=== PATIENT | male | born 1965 | race Caucasian/White ===

== ENCOUNTER → 2017-07-15 | Outpatient (CLI) | payer BC ==
[2017-07-15 11:24] LABS: CHCM 33.6; HCT 43.5 % (39.0-53.0); HDW 2.45; HGB 14.4 gm/dL (13.0-17.5); MCH 29.7 pg (25.0-35.0); MCHC 33.1 g/dL (31.0-37.0); MCV 89.6 fL (80.0-100.0); Mean Platelet Volume 7.3; RBC 4.85 m/uL (4.30-5.90); RDW 13.5 % (11.5-15.5); WBC 6.7 k/uL (3.8-10.6)
[2017-07-15 12:23] LABS: ALT 64 U/L (21-72); AST 34 U/L (17-59); Alkaline Phosphatase 66 U/L (38-126); Anion Gap 9 mmol/L; Blood Urea Nitrogen 14 mg/dL (9-20); Calcium 9.4 mg/dL (8.4-10.2); Carbon Dioxide 26 mmol/L (22-30); Chloride 106 mmol/L (98-107); Cholesterol 211 mg/dL (<200); Glucose 108 mg/dL (74-99); HDL Cholesterol 51 mg/dL (40-60); Non-African American GFR(MDRD) >60 (>60 ml/min/1.73 sqM); Potassium 4.5 mmol/L (3.5-5.1); Sodium 141 mmol/L (137-145); Total Bilirubin 0.7 mg/dL (0.2-1.3); Total Protein 7.2 g/dL (6.3-8.2)
[2017-07-15 15:53] LABS: Prolactin 6.5 ng/mL (2.1-17.7)
[2017-07-15 16:47] LABS: Gliadin AB IgA, Deaminated NEGATIVE (NEGATIVE); Tis Transglutaminase IgA Unit <0.5 AI
[2017-07-15 16:48] LABS: Gliadin AB IgG, Deaminated NEGATIVE (NEGATIVE); Gliadin AB IgG, Unit <0.4 U/mL; Tis Transglutaminase IgG Unit <0.8 U/mL
== END | disposition home or self-care (01) ==
LOC: LABWHC1 10:51
PROVIDERS: ATTEND Internal Medicine
DX: N52.9 Male erectile dysfunction, unspecified (principal); I10 Essential (primary) hypertension; E78.00 Pure hypercholesterolemia, unspecified; R19.7 Diarrhea, unspecified
CPT/HCPCS: 36415; 80053; 80061; 83001; 83002; 83516; 84146; 84153; 84402; 84403; 84443; 85027

== ENCOUNTER 2017-10-06 20:13 | Emergency (ER) | payer BC ==
[2017-10-06 20:23] VITALS: BP 146/78; PULSE 83; RESP 18; TEMP 98.3
--- NOTE | 2017-10-06 21:04 | ED ---
Back Pain HPI - General Chief Complaint: Back Pain/Injury Stated Complaint: Back Pain Time Seen by Provider: 10/06/17 20:25 Source: patient, RN notes reviewed Limitations: no limitations - History of Present Illness Initial Comments: This is a 51-year-old male who presents to the emergency department with chief complaint of low back injury. Patient states that at 2 PM this afternoon he went to lift a trailer and twisted, injuring his low back. Patient states that he tried to do a few more things and was unable to due to the pain. He presented to his chiropractor who performed a minimal adjustment and stated that he felt something is wrong with patient's L4 vertebra. Patient presented to [facility] and was given oral steroids and a shot of Toradol. He was unable to get up from the wheelchair for a lumbar x-ray so did not obtain one there. He presents now to the emergency department for further evaluation. Patient denies saddle paresthesias or loss of bladder or bowel function. He denies numbness or tingling or radiation of pain down the legs. He denies any other injuries or trauma. - Related Data Previous Rx's Medication Instructions Recorded Cyclobenzaprine [Flexeril] 10 mg PO TID #12 tab 10/06/17 methylPREDNISolone Dose Pack 4 mg PO DIRECTED #21 package 10/06/17 [Medrol Dose Pack] Allergies Allergy/AdvReac Type Severity Reaction Status Date / Time No Known Allergies Allergy Verified 10/06/17 20:23 Review of Systems ROS Statement: Those systems with pertinent positive or pertinent negative responses have been documented in the HPI. ROS Other: All systems not noted in ROS Statement are negative. Past Medical History Past Medical History: Hypertension History of Any Multi-Drug Resistant Organisms: None Reported Past Surgical History: Tonsillectomy Past Psychological History: Depression Smoking Status: Never smoker Past Alcohol Use History: None Reported Past Drug Use History: None Reported General Exam - General Exam Comments Initial Comments: General: Awake and alert, well-developed; in no apparent distress. HEENT: Head atraumatic, normocephalic. Pupils are equal, round and reactive to light. Extraocular movements intact. Neck: Supple. Normal ROM. Cardiovascular: Regular rate and rhythm. No murmurs, rubs or gallops. Chest symmetrical. Respiratory: Lungs clear to auscultation bilaterally. No wheezes, rales or rhonchi. Normal respiratory effort with no use of accessory muscles. Musculoskeletal: Limited range of motion of spine due to pain. There is no bony point vertebral tenderness or SI joint tenderness. There is tenderness on palpation of left paraspinal muscles. Pedal pulses are 2+ equal and palpable bilaterally. Sensation is intact. Skin: [place], warm and dry without rashes or lesions. Neurological: Alert and oriented x3. CN II-XII grossly intact. Speech is fluent and answers are appropriate. No focal neuro deficits. Psychiatric: Normal mood and affect. No overt signs of depression or anxiety noted. Limitations: no limitations Course Vital Signs 10/06/17 20:19 Temperature 98.3 F Pulse Rate 83 Respiratory 18 Rate Blood Pressure 146/78 O2 Sat by Pulse 100 Oximetry Medical Decision Making - Medical Decision Making This is a 51-year-old male who presents to the emergency department with chief complaint low back pain. Patient states he sustained a low back injury while lifting a trailer and twisting. Today he was seen by his chiropractor and [facility]. He now presents to the emergency department for further evaluation. X -ray of the lumbar spine revealed no acute abnormalities. He denies saddle paresthesias or loss of bladder or bowel function. Denies numbness or tingling or radiation of pain down the legs. Patient was given a shot of Toradol and oral steroids while at [facility]. Patient likely suffering from a lumbar muscle strain. He is in no acute distress and will be discharged home. He'll be given prescriptions for a Medrol Dosepak and Flexeril. Patient requests pain medication now so that he can get home comfortably. I recommended low back stretching exercises as well as a heating pad. Patient is to follow-up with his primary care provider in the next couple of days. He is in agreement with plan and voices understanding. All questions were answered. - Radiology Data Radiology results: report reviewed X-ray lumbar spine findings: There are 5 lumbar type vertebral bodies identified. The lumbar spine show satisfactory alignment without evidence of acute fracture or dislocation. Vertebral body height are within normal limits. Scattered degenerative disc space narrowing. The overlying soft tissue appears unremarkable. Impression: No acute fracture or dislocation is seen in the lumbar spine. Disposition Clinical Impression: Strain of lumbar region Disposition: HOME SELF-CARE Condition: Good Instructions: Low Back Strain (ED), Acute Low Back Pain (ED), Lower Back Exercises (ED) Additional Instructions: Please take medications as prescribed. Please follow up with primary care provider within 1-2 days. Return to emergency department if symptoms should worsen or any concerns arise. Prescriptions: Cyclobenzaprine [Flexeril] 10 mg PO TID #12 tab methylPREDNISolone Dose Pack [Medrol Dose Pack] 4 mg PO DIRECTED #21 package Referrals: None,Stated [Primary Care Provider] - 1-2 days Time of Disposition: 21:24
--- NOTE | 2017-10-06 21:04 | XR ---
EXAMINATION TYPE: XR lumbar spine 2 or 3V DATE OF EXAM: 10/06/2017 CLINICAL HISTORY: pain TECHNIQUE: Three views of the lumbar spine are submitted. COMPARISON: None. FINDINGS: There are 5 lumbar type vertebral bodies identified. The lumbar spine shows satisfactory alignment w ithout evidence of acute fracture or dislocation. Vertebral body heights are within normal limits. Scattered degenerative disc space narrowing. The overlying soft tissue appears unremarkable. IMPRESSION: No acute fracture or dislocation is seen in the lumbar spine. ICD 10 NO FRACTURE, INITIAL EVALUATION
[2017-10-06] MEDS ORDERED: HYDROmorphone 4 MG/ML 1 ML SYRINGE IM STA (21:19)
== END 2017-10-06 21:30 | disposition home or self-care (01) ==
LOC: EC 20:13
DX: S39.012A Strain of muscle, fascia and tendon of lower back, initial encounter (principal); X50.1XXA Overexertion from prolonged static or awkward postures, initial encounter; Y93.89 Activity, other specified
CPT/HCPCS: 72100; 99283; 96372; J1170

== ENCOUNTER → 2018-04-15 | Outpatient (CLI) | payer BC ==
[2018-04-15 08:10] LABS: Anion Gap 8 mmol/L; Blood Urea Nitrogen 21 mg/dL (9-20); Calcium 9.4 mg/dL (8.4-10.2); Carbon Dioxide 28 mmol/L (22-30); Chloride 104 mmol/L (98-107); Glucose 107 mg/dL (74-99); Potassium 5.2 mmol/L (3.5-5.1); Sodium 140 mmol/L (137-145)
== END | disposition home or self-care (01) ==
LOC: LABWHC1 07:08
PROVIDERS: ATTEND Internal Medicine
DX: I10 Essential (primary) hypertension (principal)
CPT/HCPCS: 36415; 80048

== ENCOUNTER → 2022-01-28 | Outpatient (CLI) | payer OTHER ==
--- NOTE | 2022-01-28 11:01 | XR ---
EXAMINATION TYPE: XR shoulder complete LT DATE OF EXAM: 01/28/2022 COMPARISON: NONE HISTORY: Pain TECHNIQUE: Shoulder examined in 3 projections FINDINGS: The humeral head articulates with the glenoid. The acromio-clavicular junction is without hypertrophy. No acute fractures or dislocations are evident. A follow up study can be performed 7-10 days from acute trauma for continued pain. MRI can be perform ed for evaluation of soft tissues. IMPRESSION: 1. No acute osseous abnormality left shoulder.
== END | disposition home or self-care (01) ==
LOC: RADXRMAIN 10:23
PROVIDERS: ATTEND Emergency Medicine
DX: M25.512 Pain in left shoulder (principal)

== ENCOUNTER → 2022-02-04 | Outpatient (CLI) | payer OTHER ==
--- NOTE | 2022-02-05 06:30 | MR ---
EXAMINATION TYPE: MR shoulder LT wo con DATE OF EXAM: 02/04/2022 COMPARISON: None HISTORY: Left shoulder pain and limited range of motion due to work related injury 2 weeks ago. Multiplanar multiecho imaging of the left shoulder with no contrast. The biceps tendon is intact. Subscapularis tendon is intact. There is large area of mixed signal in t he subchondral humeral head that measures 2 cm. This could be a bone infarct. The glenoid casey appea r intact. There is fluid signal around the infraspinatus tendon. There is patchy increased signal in the infras pinatus muscle bundle. There is a large rotator cuff tear with some retraction of the supraspinatus tendon. There is some ma lalignment of the AC joint consistent with an old ligamentous tear. No fracture line seen. IMPRESSION: Patchy mixed signal in the humeral head that could be multifocal bone infarct. No fracture line seen. There is tear of the infraspinatus tendon with increased signal in the muscle and consistent with malik sitis. There is a large full-thickness rotator cuff tear of the supraspinatus tendon. Mild subacromia l joint space narrowing.
== END | disposition home or self-care (01) ==
LOC: RADMRIMAIN 18:29
PROVIDERS: ATTEND Emergency Medicine
DX: S40.012A Contusion of left shoulder, initial encounter (principal)

== ENCOUNTER → 2022-08-18 | Outpatient (CLI) | payer BC ==
[2022-08-18 22:55] LABS: HCT 41.1 % (39.6-50.0); HGB 13.5 g/dL (13.0-17.0); MCH 30.4 pg (27.0-32.0); MCHC 32.8 g/dL (32.0-37.0); MCV 92.6 fL (80.0-97.0); Mean Platelet Volume 9.7 fL (9.5-12.2); NRBC Per 100 WBC 0 /100 WBCS (0.0-0.0); Platelet Count 233 X 10*3/uL (140-440); RBC 4.44 X 10*6/uL (4.40-5.60); RDW 11.9 % (11.5-14.5); WBC 7.94 X 10*3/uL (4.50-10.00)
[2022-08-18 23:34] LABS: African American GFR (CKD) 71.2 (60.0-200.0); Anion Gap 12.8 mmol/L (10.00-18.00); Carbon Dioxide 23.2 mmol/L (20.0-27.5); Non-African American GFR(CKD) 61.4 (60.0-200.0); Potassium 4.8 mmol/L (3.5-5.5)
== END | disposition home or self-care (01) ==
LOC: LABPAT 16:11
PROVIDERS: ATTEND Internal Medicine Interventional Cardiology
DX: Z01.812 Encounter for preprocedural laboratory examination (principal); I25.10 Atherosclerotic heart disease of native coronary artery without angina pectoris
CPT/HCPCS: 80051; 82565; 84520; 85027

== ENCOUNTER 2022-08-20 18:19 | Emergency (ER) | payer BC ==
[2022-08-20 18:41] VITALS: TEMP 98
[2022-08-20 19:00] LABS: Basophils # (A) 0.1 k/uL (0-0.2); Basophils % (A) 1 %; Eosinophils # (A) 0.3 k/uL (0-0.7); Eosinophils % (A) 4 %; HCT 40.5 % (39.0-53.0); HGB 14.3 gm/dL (13.0-17.5); Lymphocytes # (A) 2.7 k/uL (1.0-4.8); Lymphocytes % (A) 34 %; MCH 31.7 pg (25.0-35.0); MCHC 35.2 g/dL (31.0-37.0); MCV 89.9 fL (80.0-100.0); Mean Platelet Volume 7.7; Monocytes # (A) 0.5 k/uL (0-1.0); Monocytes % (A) 7 %; Neutrophils # (A) 4.2 k/uL (1.3-7.7); Neutrophils % (A) 53 %; Platelet Count 234 k/uL (150-450); RBC 4.51 m/uL (4.30-5.90); RDW 11.8 % (11.5-15.5); WBC 7.9 k/uL (3.8-10.6)
[2022-08-20 19:09] LABS: ALT 62 U/L (4-49); AST 53 U/L (17-59); African American GFR (CKD) >90 (>60 ml/min/1.73 sqM); Albumin 4.7 g/dL (3.5-5.0); Alkaline Phosphatase 80 U/L (38-126); Anion Gap 11 mmol/L; Blood Urea Nitrogen 15 mg/dL (9-20); Calcium 8.9 mg/dL (8.4-10.2); Carbon Dioxide 23 mmol/L (22-30); Chloride 104 mmol/L (98-107); Glucose 112 mg/dL (74-99); INR 0.9 (<1.2); Magnesium 1.9 mg/dL (1.6-2.3); Non-African American GFR(CKD) >90 (>60 ml/min/1.73 sqM); Partial Thromboplastin Time 24.5 sec (22.0-30.0); Potassium 3.8 mmol/L (3.5-5.1); Prothrombin Time 10.1 sec (9.0-12.0); Sodium 138 mmol/L (137-145); Total Bilirubin 0.8 mg/dL (0.2-1.3); Total Protein 7.7 g/dL (6.3-8.2)
--- NOTE | 2022-08-20 19:58 | XR ---
EXAMINATION TYPE: XR chest 2V DATE OF EXAM: 08/20/2022 COMPARISON: None INDICATION: Chest pain difficulty in breathing TECHNIQUE: Frontal and lateral views of the chest are obtained. FINDINGS: The heart size is normal. The pulmonary vasculature is normal. The lungs are clear. IMPRESSION: 1. No acute pulmonary process.
--- NOTE | 2022-08-20 21:37 | ED ---
Chest Pain HPI - General Chief Complaint: Chest Pain Stated Complaint: Chest Pain,HARISH Source: patient, RN notes reviewed, old records reviewed Mode of arrival: ambulatory Limitations: no limitations - History of Present Illness Initial Comments: This 56-year-old male to the emergency department for evaluation patient resents today for evaluation regards to chest pain occasional chest pain with shortness of breath especially on exertion swelling. History of high blood pressure high cholesterol and a daily aspirin. Patient recently had a failed stress test and is scheduled for cardiac catheterization tomorrow. Otherwise patient has no complaints. Patient is here with she does admit to maybe some anxiety MD Complaint: chest pain -: unknown Onset: during exertion, awoke with symptoms Pain Location: substernal, left chest Pain Radiation: back Severity: mild Severity scale (1-10): 3 Quality: tightness Consistency: intermittent, now resolved Improves With: nothing Worsens With: exertion Context: other (0) Anginal Symptoms: diaphoresis, dyspnea Other Symptoms: other (0) - Related Data Home Medications Medication Instructions Recorded Confirmed Aspirin EC [Ecotrin Low Dose] 81 mg PO DAILY 08/18/22 08/18/22 Atorvastatin [Lipitor] 40 mg PO DAILY 08/18/22 08/18/22 Ezetimibe [Zetia] 10 mg PO DAILY 08/18/22 08/18/22 Metoprolol Tartrate [Lopressor] 25 mg PO BID 08/18/22 08/18/22 Multivit-Min/Folic/Vit K/Lycop 1 each PO DAILY 08/18/22 08/18/22 [Men's Multivitamin Tablet] Sertraline [Zoloft] 50 mg PO HS 08/18/22 08/18/22 lisinopriL [Zestril] 10 mg PO DAILY 08/18/22 08/18/22 Allergies Allergy/AdvReac Type Severity Reaction Status Date / Time No Known Allergies Allergy Verified 08/18/22 14:29 Review of Systems ROS Statement: Those systems with pertinent positive or pertinent negative responses have been documented in the HPI. ROS Other: All systems not noted in ROS Statement are negative. EKG Findings - EKG Comments: EKG Findings:: EKG as interpreted by me is sinus rhythm 74 NE 161 QRS 89 QTC 431 Past Medical History Past Medical History: Hyperlipidemia, Hypertension Additional Past Medical History / Comment(s): RECENT ABN STRESS TEST History of Any Multi-Drug Resistant Organisms: None Reported Past Surgical History: Orthopedic Surgery, Tonsillectomy Additional Past Surgical History / Comment(s): LT ROTATOR CUFF REPAIR. COLONOSCOPY Past Anesthesia/Blood Transfusion Reactions: No Reported Reaction Past Psychological History: Depression Smoking Status: Former smoker - Past Family History Father Family Medical History: Cancer General Exam Limitations: no limitations General appearance: alert, in no apparent distress Head exam: Present: atraumatic, normocephalic, normal inspection Eye exam: Present: normal appearance, PERRL, EOMI. Absent: scleral icterus, conjunctival injection, periorbital swelling ENT exam: Present: normal exam, mucous membranes moist Neck exam: Present: normal inspection. Absent: tenderness, meningismus, lymphadenopathy Respiratory exam: Present: normal lung sounds bilaterally. Absent: respiratory distress, wheezes, rales, rhonchi, stridor Cardiovascular Exam: Present: regular rate, normal rhythm, normal heart sounds. Absent: systolic murmur, diastolic murmur, rubs, gallop, clicks GI/Abdominal exam: Present: soft, normal bowel sounds. Absent: distended, tenderness, guarding, rebound, rigid Extremities exam: Present: normal inspection, full ROM, normal capillary refill. Absent: tenderness, pedal edema, joint swelling, calf tenderness Back exam: Present: normal inspection Neurological exam: Present: alert, oriented X3, CN II-XII intact Psychiatric exam: Present: normal affect, normal mood Skin exam: Present: warm, dry, intact, normal color. Absent: rash Course Vital Signs 08/20/22 18:38 Temperature 98 F Pulse Rate 79 Respiratory 18 Rate Blood Pressure 165/75 O2 Sat by Pulse 99 Oximetry - Reevaluation(s) Reevaluation #1: 08/20/22 21:26 Medical records reviewed Reevaluation #2: Patient reevaluated, symptoms improved Reevaluation #3: 08/20/22 21:24 Differential Chest Pain: Stable Angina, Unstable Angina, STEMI, NSTEMI Aortic Dissection, Pneumothorax, Musculoskeletal, Esophageal Spasm GERD, Cholecystitis, Pancreatitis, Zoster, this is not meant to be an all-inclusive list. Reevaluation #4: 08/20/22 21:25 Was pt. sent in by a medical professional or institution? @ -None Did you speak to anyone other than the patient for history? @ -EMS Did you review nursing and triage notes? @ -Gastrointestinal nursing triage thoroughly reviewed Were old charts reviewed? @ -Old EKG and prior stress tests are reviewed Differential Diagnosis? @ -See previous EKG interpreted by me (3pts min.)? @ -See previous X-rays interpreted by me (1pt min.)? @ -See previous CT interpreted by me (1pt min.)? @ -[none] U/S interpreted by me (1pt. min.)? @ -[none] What testing was considered but not performed? (CT, X-rays, U/S, labs)? Why? @No CT secondary to chest pain cardiac in nature, rule out ACS What meds were considered but not given? Why? @ -Patient is on daily aspirin Did you discuss the management of the patient with other professionals? @ -None Did you reconcile home meds? @ -[none] Was smoking cessation discussed for >3mins.? @ -[none] Was critical care preformed (if so, how long)? @ -[none] Were there social determinants of health that impacted care today? How? (Homelessness, low income, unemployed, alcoholism, drug addiction, transportation, low edu. Level, literacy, decrease access to med. care, fpc, rehab)? @ -None Was there de-escalation of care discussed even if they declined? (Discuss DNR or withdrawal of care, Hospice)? @ -None What co-morbidities impacted this encounter? (DM, HTN, Smoking, COPD, CAD, Cancer, CVA, Hep., AIDS, mental health diagnosis, sleep apnea, morbid obesity)? @ -High blood pressure, high cholesterol, feel prior stress test Was patient admitted / discharged? @ -Discharged Undiagnosed new problem with uncertain prognosis? @ -[none] Drug Therapy requiring intensive monitoring for toxicity (Heparin, Nitro, Insulin, Cardizem)? @ -[none] Were any procedures done? @ -[none] Diagnosis/symptom? @ - Acute, or Chronic, or Acute on Chronic? @ -Acute on chronic Uncomplicated (without systemic symptoms) or Complicated (systemic symptoms)? @ -[default] Side effects of treatment? @ -[none] Exacerbation, Progression, or Severe Exacerbation] @ -[no] Poses a threat to life or bodily function? @ -Possible patient does have outpatient stress test and agrees to keep that appointment with discharged 08/20/22 21:32 Reevaluation #5: 08/20/22 21:26 Reevaluation patient does have appointment with Dr. Ramírez tomorrow for cardiac catheterization, will keep that appointment with normal EKG today and normal troponin Chest Pain [facility] - Differential Diagnosis AMI, Pericarditis, Pericardial Tamponade, Pneumonia, Pleurisy-Other, Valvular Heart Disease, GERD, Esophageal Spasm, Biliary Colic, Pancreatitis, Thoracic Aortic Dissection, Pneumomediastinum, Pneumothorax/Tension, Chest Wall Syndrome, Mediastinitis, Hyperventilation Syndrome, Panic Disorder/Anxiety - MDM 56 male presents today as a chest pain evaluation. Patient feels episodic chest pain which she hasn't doing with for some time with some occasional shortness of breath sweating. Patient doesn't report for cardiac catheterization tomorrow troponins negative he is on aspirin, EKG also currently negative patient will keep appointment can be discharged home as he currently asymptomatic Disposition Clinical Impression: Chest pain Disposition: HOME SELF-CARE Condition: Undetermined Instructions (If sedation given, give patient instructions): Chest Pain (ED) Is patient prescribed a controlled substance at d/c from ED?: No Referrals: Franklin Bird MD [Primary Care Provider] - 1-2 days Saul Gibbons MD [STAFF PHYSICIAN] - 1-2 days Time of Disposition: 21:40
[2022-08-21 00:38] VITALS: BP 137/78; PULSE 71; RESP 15
== END 2022-08-21 00:38 | disposition home or self-care (01) ==
LOC: EC 18:19
DX: R07.9 Chest pain, unspecified (principal); I10 Essential (primary) hypertension; E78.5 Hyperlipidemia, unspecified; F32.A Depression, unspecified; Z87.891 Personal history of nicotine dependence; Z79.82 Long term (current) use of aspirin; Z79.01 Long term (current) use of anticoagulants; Z79.899 Other long term (current) drug therapy
CPT/HCPCS: 36415; 71046; 80053; 83735; 84484; 85025; 85610; 85730; 93005; 99285

== ENCOUNTER 2022-08-21 08:07 | Day surgery (SDC) | payer BC, OTHER ==
[2022-08-18 14:41] VITALS: BMI 39.0
[~2022-08-21 08:07] MED LIST: ALPRAZolam 0.25 MG TAB PO PRN; ALPRAZolam 0.5 MG TAB PO PRN; ASPIRIN 325 MG TAB PO ONE; NITROGLYCERIN SL TABS 0.4 MG TAB SUBLINGUAL PRN; SODIUM CHLORIDE 0.9% 1,000 ML in EMPTY BAG 1 BAG IV SCH
[2022-08-21] MEDS ORDERED: SODIUM CHLORIDE 0.9% 1,000 ML IV ONE (08:22)
[2022-08-21] MEDS ORDERED: ASPIRIN 81 MG ONE (08:32)
[2022-08-21 09:01] VITALS: RESP 16; TEMP 98.4
[2022-08-21] MEDS ORDERED: VERAPAMIL 2.5 MG/ML 2 ML AMP ONE (09:32)
[2022-08-21] MEDS ORDERED: HEPARIN SODIUM 1,000 UN/ML (10ML VL) ONE (09:32)
[2022-08-21] MEDS: MIDAZOLAM 2 MG/2 ML VIAL IV ONE ×2 (09:49→10:03)
[2022-08-21] MEDS ORDERED: fentaNYL (PF) 50 MCG/ML 2 ML AMP ONE (09:49)
[2022-08-21] MEDS ORDERED: fentaNYL (PF) 50 MCG/ML 2 ML AMP IV ONE (09:50)
[2022-08-21] MEDS ORDERED: LIDOCAINE 1% INJ 10MG/ML (5 ML VIAL-PF) SQ ONE (10:03)
[2022-08-21] MEDS ORDERED: VERAPAMIL SYRINGE (5 MG/10 ML) INTRAARTER ONE (10:04)
[2022-08-21] MEDS ORDERED: HEPARIN SODIUM 1,000 UN/ML (10ML VL) IV ONE (10:08)
[2022-08-21] MEDS ORDERED: IOPAMIDOL-370 125ML BTL INJ ONE (10:13)
[2022-08-21] MEDS ORDERED: RX INFO: IV CONTRAST WAS GIVEN 1 EACH MISC MISCELLANE PRN (10:21)
--- NOTE | 2022-08-21 10:24 | P.PCN ---
Date of Procedure: 08/21/22 Operative Findings: CARDIAC CATHETERIZATION PERFORMING PHYSICIAN: Saul Gibbons MD, RPVI PROCEDURE PERFORMED: 1. Selective right and left coronary angiogram INDICATION: This is a 56-year-old gentleman with CAD and hypertension and dyslipidemia who was going to undergo hip surgery. He underwent myocardial perfusion imaging stress test came in to be abnormal showing anterior ischemia. In the light of that he was brought to undergo a heart catheterization COMPLICATION: None APPROACH: Right radial artery LEVEL OF SEDATION: Moderate with a sedation length of 11 minutes PROCEDURE DESCRIPTION: After obtaining an informed consent, the patient was brought to cardiac catheterization laboratory technician. Local anesthesia was performed using lidocaine subcutaneously. The right radial artery was cannulated using Seldinger technique, the guidewire passed easily, following that we advanced a 5-Yoruba sheath dilator assembly, the wire and dilator were removed and sheath was flushed. Following that, 2 mg of verapamil along with 5000 unit heparin were given. Selective right and left coronary angiogram using a 6-Yoruba JR4 and JL 3.5 catheters. The procedure was completed there was no complication. SELECTIVE CORONARY ANGIOGRAM: The right coronary artery: Large caliber vessel and dominant vessel. The RCA appeared to be angiographically normal. Distally bifurcates into PDA and PLV branches both appeared to be angiographically normal Left main: Is angiographically normal. It is a long left main The left circumflex: Large caliber vessel. Non-dominant vessel. The LCx is angiographically normal. Gives rises into OM1 and OM to both appeared to be angiographically normal The left anterior descending artery: Large caliber vessel. The LAD is angiographically normal. Gives rises into the first and second diagonal branches both appeared to be angiographically normal. CONCLUSION: 1. Normal coronary angiogram POSTPROCEDURE MANAGEMENT: Medical treatment and follow-up with the patient
[2022-08-21] MEDS ORDERED: SODIUM CHLORIDE 0.9% 1,000 ML IV SCH (10:30)
[2022-08-21 13:49] VITALS: BP 107/56; PULSE 67
== END 2022-08-21 14:18 | disposition home or self-care (01) ==
LOC: CATHCVL 08:07
PROVIDERS: ATTEND Internal Medicine Interventional Cardiology
DX: I25.10 Atherosclerotic heart disease of native coronary artery without angina pectoris (principal); I10 Essential (primary) hypertension; E78.5 Hyperlipidemia, unspecified; I99.8 Other disorder of circulatory system; Z79.82 Long term (current) use of aspirin; Z79.811 Long term (current) use of aromatase inhibitors; Z79.899 Other long term (current) drug therapy; Z79.01 Long term (current) use of anticoagulants; Z79.02 Long term (current) use of antithrombotics/antiplatelets; Z79.83 Long term (current) use of bisphosphonates; E66.01 Morbid (severe) obesity due to excess calories; Z68.41 Body mass index [BMI] 40.0-44.9, adult
CPT/HCPCS: 93454; C1769; C1894; J2250; J2001; J3010; J1644; Q9967

== ENCOUNTER → 2022-09-10 | Outpatient (CLI) | payer BC ==
[2022-09-10 17:22] LABS: INR 0.9 (<1.2); Partial Thromboplastin Time 23.4 sec (22.0-30.0); Prothrombin Time 10.1 sec (9.0-12.0)
[2022-09-10 22:15] LABS: MCH 31.3 pg (27.0-32.0); MCHC 33.3 g/dL (32.0-37.0); MCV 93.8 fL (80.0-97.0); Mean Platelet Volume 10.3 fL (9.5-12.2); NRBC Per 100 WBC 0 /100 WBCS (0.0-0.0); Platelet Count 262 X 10*3/uL (140-440); RBC 4.48 X 10*6/uL (4.40-5.60); RDW 12.2 % (11.5-14.5); WBC 9.17 X 10*3/uL (4.50-10.00)
[2022-09-10 22:59] LABS: African American GFR (CKD) 87.1 (60.0-200.0); Albumin 4.8 g/dL (3.8-4.9); Anion Gap 11.7 mmol/L (10.00-18.00); BUN/Creat Ratio 19.09 Ratio (12.00-20.00); Carbon Dioxide 25.3 mmol/L (20.0-27.5); Globulin 2.4 g/dL (1.6-3.3); Non-African American GFR(CKD) 75.2 (60.0-200.0); Potassium 4.5 mmol/L (3.5-5.5); Total Bilirubin 0.5 mg/dL (0.30-1.20); Total Protein 7.2 g/dL (6.2-8.2)
[2022-09-10 23:28] LABS: Appearance,Urine Clear (Clear); Bilirubin,Urine Negative (Negative); Blood,Urine Negative (Negative); Color,Urine Yellow (Yellow); Ketones,Urine Negative (Negative); Nitrite,Urine Negative (Negative); PH, Urine 5.5 (5.0-8.0); Urobilinogen,Urine 0.2 (0.2,1.0)
== END | disposition home or self-care (01) ==
LOC: LABPAT 16:13
PROVIDERS: ATTEND Orthopaedic Surgery
DX: Z01.812 Encounter for preprocedural laboratory examination (principal); M16.12 Unilateral primary osteoarthritis, left hip
CPT/HCPCS: 80053; 81003; 85027; 85610; 85730; 87070; 93005

== ENCOUNTER 2022-09-16 12:01 | Day surgery (SDC) | payer BC, OTHER ==
[2022-09-11 12:18] VITALS: BMI 39.0
[~2022-09-16 12:01] MED LIST changes: +ACETAMINOPHEN TAB 500 MG TAB PO PRN; -ALPRAZolam 0.25 MG TAB PO PRN; -ALPRAZolam 0.5 MG TAB PO PRN; -ASPIRIN 325 MG TAB PO ONE; +DEXAMETHASONE SOD PHOSPHATE 10 MG/ML 1 ML VIAL IV PRN; +DEXAMETHASONE SOD PHOSPHATE 4 MG/ML 1 ML VIAL IV ONE; +DOCUSATE 100 MG CAP PO PRN; +FAMOTIDINE 20 MG/2 ML VIAL IVP PRN; +HYDROmorphone 0.5 MG/0.5 ML SYRINGE IVP PRN; +KETOROLAC 15 MG/ML 1 ML VIAL IVP PRN; +LIDOCAINE 1% (10MG/ML) FOR IV START INTRADERMA PRN; -NITROGLYCERIN SL TABS 0.4 MG TAB SUBLINGUAL PRN; +ONDANSETRON 4 MG/2 ML VIAL IVP ONE; +ONDANSETRON 4 MG/2 ML VIAL IVP PRN; -SODIUM CHLORIDE 0.9% 1,000 ML in EMPTY BAG 1 BAG IV SCH; +TRANEXAMIC ACID IN NACL,ISO-OS 1,000 MG in SALINE 1 100ML.BAG IVPB PRN; +ceFAZolin 3 GM in SODIUM CHLORIDE 0.9% 100 ML IVPB PRN; +oxyCODONE ER 10 MG TAB.ER.12H PO PRN
[2022-09-16] MEDS ORDERED: LACTATED RINGERS 1,000 ML IV ONE ×2 (12:20→14:44)
[2022-09-16] MEDS ORDERED: MIDAZOLAM 2 MG/2 ML VIAL IVP ONE (13:01)
[2022-09-16] MEDS ORDERED: fentaNYL (PF) 50 MCG/1 ML VIAL IVP ONE ×2 (13:01)
[2022-09-16] MEDS ORDERED: ePHEDrine 50 MG/ML 1 ML VIAL ONE (13:09)
[2022-09-16] MEDS ORDERED: LIDOCAINE 2% INJ 20 MG/ML (2 ML VIAL) ONE (13:09)
[2022-09-16] MEDS ORDERED: ROCURONIUM 10 MG/ML (5 ML VIAL) IV ONE (13:09)
[2022-09-16] MEDS ORDERED: fentaNYL (PF) 50 MCG/ML 2 ML AMP ONE (13:09)
[2022-09-16] MEDS ORDERED: NEOSTIGMINE 1 MG/ML 10 ML VIAL ONE (13:09)
[2022-09-16] MEDS ORDERED: GLYCOPYRROLATE 0.2 MG/ML 2 ML VIAL ONE (13:09)
[2022-09-16] MEDS ORDERED: SUCCINYLCHOLINE CHLORIDE 200 MG/10 ML VIAL IV ONE (13:09)
[2022-09-16] MEDS ORDERED: ROPIVACAINE 5 MG/ML 30 ML VIAL ONE (13:09)
[2022-09-16] MEDS ORDERED: PROPOFOL 10 MG/ML 20 ML VIAL IV ONE (13:09)
[2022-09-16] MEDS: ROPIVACAINE/EPI/CLONIDINE/KET 50 ML SYRINGE MISCELLANE PRN ×2 (13:54→15:05)
--- NOTE | 2022-09-16 15:22 | P.ANPRN ---
Procedure Note - Anesthesia - Nerve Block Performed Left Thomas Single Time Out Performed: Yes ([id number]) Date of Procedure: 09/16/22 Procedure Start Time: 13:02 Procedure Stop Time: 13:07 Location of Patient: PreOp Indication: Acute Post-Operative Pain, Requested by Surgeon Specifically requested for management of pain by DrVerónica: Marco Tovar Sedation Type: Sedate with meaningful contact maintained Preparation: Sterile Prep Position: Supine Catheter: None Needle Types: Pajunk Needle Gauge: 21 Ultrasound used to visualize needle placement: Yes Ultrasound used to observe medication spread: Yes Injectate: 0.5% Ropivacaine (see comment for volume) (30cc) Blood Aspirated: No Pain Paresthesia on Injection Noted: No Resistance on Injection: Normal Image Stored and Saved: Yes Events: Uneventful and Well Tolerated
[2022-09-16] MEDS ORDERED: hydrOXYzine pamoate 25 MG CAP PO PRN (15:52)
[2022-09-16] MEDS ORDERED: HYDROmorphone 0.5 MG/0.5 ML SYRINGE IVP PRN ×2 (15:52)
[2022-09-16] MEDS ORDERED: ONDANSETRON 4 MG/2 ML VIAL IVP PRN (15:52)
[2022-09-16] MEDS ORDERED: HYDROcodone/APAP 5-325MG 1 EACH TAB PO PRN (15:52)
[2022-09-16] MEDS ORDERED: HYDROmorphone 1 MG/ML 1 ML SYRINGE IVP PRN (15:52)
[2022-09-16] MEDS ORDERED: NALOXONE 0.4 MG/ML 1 ML VIAL IV PRN (15:52)
--- NOTE | 2022-09-16 15:53 | FL ---
EXAMINATION TYPE: FL guidance operating room, XR Hip Limited LT DATE OF EXAM: 09/16/2022 COMPARISON: NONE HISTORY: 56-year-old male anterior left hip replacement FINDINGS: Intraoperative fluoroscopy during left hip total arthroplasty. FLUOROSCOPY Fluoroscopy time of 27 seconds was used during anterior left hip replacement. 5 image/s document/s t he procedure. IMPRESSION: Intraoperative fluoroscopy as above.
[2022-09-16] MEDS ORDERED: HYDROmorphone 0.5 MG/0.5 ML SYRINGE IVP ONE (15:55)
--- NOTE | 2022-09-16 15:55 | P.OP ---
Date of Procedure: 09/16/22 Preoperative Diagnosis: 1. Severe left hip osteoarthritis 2. BMI 39 Postoperative Diagnosis: Same Procedure(s) Performed: Left direct anterior total hip arthroplasty Implants: 1. Olamide Trident II Acetabular Cup, Size #56 2. Olamide Insignia Size #7 Femoral Stem, Standard Offset 3. Biolox delta femoral head, 36 mm, -5 neck Anesthesia: GETA, regional Surgeon: Marco Tovar Computing Architect #1: Lidna Guerrero Estimated Blood Loss (ml): 300 IV fluids (ml): 600 Pathology: none sent Condition: stable Disposition: PACU Indications for Procedure: I had a long discussion with the patient in the office on the potential risks and complications of an elective total hip replacement through a direct anterior approach. Risks discussed include, but are certainly not limited to, risks from anesthesia, superficial infection requiring local wound care or antibiotics, deep manju-prosthetic joint infection and the treatment required to eradicate infection, intraoperative fracture, postoperative periprosthetic fracture, damage to local blood vessels or nerves particularly the lateral femoral cutaneous nerve, delayed wound healing requiring local wound care or possibly surgical debridement, hip dislocation, leg length discrepancy, soft tissue irritation around the total hip implant such as iliopsoas tendinitis or trochanteric bursitis, wear and osteolysis from the implants, squeaking or audible noises, groin pain, thigh pain, heterotopic ossification, stiffness, aseptic loosening of the implants, dissatisfaction with surgical outcome, need for revision surgery, DVT, PE, swelling of the operative extremity, acute coronary event, stroke, failure to thrive, and possibly loss of life or limb. The patient understands that while these are the most common complications after an elective hip replacement there are certainly other less common complications possible. They were given ample time to ask questions regarding the potential complications of a hip replacement. Following our discussion the patient provided their verbal and written consent to go forward with an elective total hip replacement. Operative Findings: Severe left hip osteoarthritis Description of Procedure: The patient was identified in the preoperative holding area and the correct hip was marked with my initials. I reviewed the procedure and consent with the patient. All of their questions were answered. The patient was then brought back into the operating room by anesthesia. While on the [facility] anesthesia was administered by the anesthesia team. Preoperative antibiotics and tranexamic acid were also given. After the patient was under anesthesia I examined their ankles to determine their preoperative leg length discrepancy. The skin over the anterior aspect of the hip was shaved to remove hair over the site of planned incision. Both feet and ankles were padded with webril and boots for the Hassell were applied. The patient was then carefully transferred onto the Hassell table. A perineal post was immediately placed. The arms were placed on arm holders and were well-padded. Both boots were secured to the spars on the Hassell table. The patient was positioned so that the pelvis was centered over the post. Nonsterile drapes were applied. A timeout was performed identifying the correct patient, operative extremity, and procedure. At this point fluoroscopy was brought in to take preoperative images of the pelvis and operative hip. Using the standing AP pelvis from the office as a template, a comparable image was obtained with fluoroscopy. A metallic bar was used to create a bi-ischial line for use as a reference to leg length adjustments during the procedure. Global offset was also measured on both the operative and nonoperative leg. Fluoroscopy was then brought out and a pre-scrub using a chlorhexidine scrub brush was performed. The operative limb was then prepped and draped in the standard sterile fashion. An anterior longitudinal incision was made lateral and distal to the ASIS. The skin and subcutaneous tissues were incised sharply. The underlying tensor fascia was identified and incised in its midportion. The fascia was dissected free from the underlying muscle and the muscle belly was retracted. A blunt tipped cobra retractor was placed over the superior neck under the muscle fibers of the gluteus minimus. The deep enveloping fascia of the tensor was incised. The anterior leash of vessels were then identified and cauterized. The fascia between the rectus and the capsule was then incised and the pre-capsular fat was excised. A second Cobra was placed inferior to the neck. The interval between the rectus and iliocapsularis and the hip capsule was developed and a retractor was placed carefully over the anterior rim of the acetabulum. A T-shaped anterior capsulotomy was performed. The superior capsular leaflet was left in place in the inferior capsular flap was excised. The Cobra retractors were placed intracapsularly. We then made a femoral neck osteotomy according to preoperative and intraoperative templating and confirmed the level of the osteotomy using fluoroscopic imaging. The femoral head was removed, passed off to the back table, and sized. The superior capsular flap was excised. Retractors were placed circumferentially exposing the acetabulum. We then circumferentially debrided the acetabulum free of labrum and osteophytes. The pulvinar was removed to fully visualize the cotyloid fossa. We then sequentially reamed to achieve peripheral fit and excellent bleeding subchondral bone. The socket was thoroughly irrigated. The acetabular component was impacted into the appropriate position using fluoroscopy to guide version, inclination, and depth of insertion taking care to have a comparable image of the AP pelvis to the standing image taken in the office. An excellent press-fit was achieved and final position was confirmed using fluoroscopy. The press fit was augmented with bony cancellus dome screws. The liner was then impacted into the socket. Attention was then turned to the femur. The remnant dorsal lateral capsule was excised. The short external rotators were visible and protected. A bone hook was used to confirm appropriate translation of the trochanter away from the acetabulum. The leg was then extended and adducted and the bone hook was used to elevate the femur for broaching. A box osteotome and blunt tipped canal sound was then utilized to gain access to the femoral canal. We then sequentially broached the femur in appropriate anteversion until excellent torsional stability was achieved. The neck cut was brought flush to the trial broach with a calcar planar. A trial neck and head were then placed onto the broach and the hip was atraumatically reduced under direct visualization. External rotation to 90 was performed to assess stability. Fluoroscopy was brought in. An AP and lateral fluoroscopic image of the proximal femur was obtained to assess position and fill of the trial broach. An AP of the pelvis was then obtained and matched to the preoperative image taken. A bi-ischial bar was then placed and measurements were taken to assess changes in length and offset. The hip was then carefully dislocated, the proximal femur was exposed, and the trial implants were removed. The wound and proximal femur was thor oughly irrigated using sterile saline and pulsatile lavage. The final femoral implant was dispensed and gently tapped into place generating an excellent press-fit. The trunnion was cleansed and the final head was tapped into place to engage the Joseph taper. The acetabulum was irrigated and visualized to be free of debris. The hip was carefully reduced. Stability was checked clinically with external rotation to 90 and there was no evidence of instability. Final fluoroscopic images were taken. The wound was then thoroughly irrigated and soaked with a dilute Betadine rinse for 3 minutes. 3 L of sterile saline was irrigated through the wound using pulsatile lavage. Local anesthetic cocktail was injected into the soft tissues around the surgical field. A deep drain was placed. The wound was then closed in layers. A sterile dressing was placed over the surgical incision and drain site. The drapes were taken down and the patient was carefully transferred off of the Hassell table. Following removal of the boots the leg lengths felt acceptable. The patient was then taken to recovery room having tolerated the procedure well. Linda Guerrero PA-C was required as a skilled assistant women's rowing coach for patient positioning, surgical exposure, retraction, placement of implants, and closure of the surgical wound. PLAN: The patient can weight-bear as tolerated on the operative extremity. 2 doses of postoperative antibiotics. DVT prophylaxis with aspirin 81 mg twice a day based on preoperative risk stratification. Physical therapy for gait training. Discontinue drain postoperative day #1 if output is less than 100 mL per shift.
[2022-09-16] MEDS: LACTATED RINGERS 1,000 ML IV SCH (17:37)
[2022-09-16] MEDS: HYDROcodone/APAP 5-325MG 1 EACH TAB PO PRN (18:09)
[2022-09-16] MEDS ORDERED: SENNOSIDES-DOCUSATE SODIUM 1 EACH TAB PO SCH (21:00)
[2022-09-16] MEDS ORDERED: SERTRALINE 50 MG TAB PO SCH (21:00)
[2022-09-16] MEDS: ASPIRIN 81 MG PO SCH (21:21)
[2022-09-16] MEDS: ceFAZolin 3 GM in SODIUM CHLORIDE 0.9% 100 ML IVPB SCH (21:21)
[2022-09-16] MEDS: METOPROLOL TARTRATE 25 MG TAB PO SCH (21:22)
[2022-09-17] MEDS: HYDROcodone/APAP 5-325MG 1 EACH TAB PO PRN ×2 (00:51→08:20)
[2022-09-17 06:13] LABS: Basophils % (A) 0 %; Eosinophils % (A) 0 %; HCT 31.7 % (39.0-53.0); Lymphocytes # (A) 1.1 k/uL (1.0-4.8); Lymphocytes % (A) 8 %; MCH 31.3 pg (25.0-35.0); MCHC 34.1 g/dL (31.0-37.0); MCV 91.9 fL (80.0-100.0); Monocytes % (A) 7 %; Neutrophils # (A) 12.1 k/uL (1.3-7.7); Neutrophils % (A) 85 %; Platelet Count 197 k/uL (150-450); RBC 3.45 m/uL (4.30-5.90); RDW 12.4 % (11.5-15.5); WBC 14.3 k/uL (3.8-10.6)
[2022-09-17 06:17] LABS: HGB 10.8 gm/dL (13.0-17.5)
[2022-09-17] MEDS: LACTATED RINGERS 1,000 ML IV SCH ×3 (07:52→11:11)
[2022-09-17] MEDS: ceFAZolin 3 GM in SODIUM CHLORIDE 0.9% 100 ML IVPB SCH (07:55)
[2022-09-17] MEDS: METOPROLOL TARTRATE 25 MG TAB PO SCH (08:21)
[2022-09-17] MEDS: ASPIRIN 81 MG PO SCH ×2 (08:23→08:59)
--- NOTE | 2022-09-17 08:29 | P.CONS ---
History of Present Illness - Reason for Consult Consult date: 09/17/22 - Chief Complaint left total hip - History of Present Illness This is a 56-year-old male who has admitted for a left total hip arthroplasty which was completed yesterday by Dr. Tovar. Patient has a history of hypertension and osteoarthritis. He is seen this morning sitting in the chair at the bedside. He denies any pain but admits some muscle soreness to the left hip area. Vitals and labs remain stable. He is tolerating his diet. Review of Systems Constitutional: Denies chills, Denies fever Cardiovascular: Denies chest pain, Denies palpitations Respiratory: Denies cough, Denies dyspnea Gastrointestinal: Denies abdominal pain, Denies constipation, Denies diarrhea Musculoskeletal: Denies arm numbness/tingling, Denies leg numbness/tingling Neurological: Denies numbness, Denies weakness Past Medical History Past Medical History: Hypertension, Osteoarthritis (OA) Additional Past Medical History / Comment(s): RECENT ABN STRESS TEST History of Any Multi-Drug Resistant Organisms: None Reported Past Surgical History: Tonsillectomy Additional Past Surgical History / Comment(s): LEFT SHOULDER-ROTATOR CUFF REPAIR Past Anesthesia/Blood Transfusion Reactions: No Reported Reaction Past Psychological History: Anxiety, Depression Smoking Status: Former smoker Past Alcohol Use History: Daily Additional Past Alcohol Use History / Comment(s): STARTED SMOKING AT AGE 19 QUIT SMOKING AT AGE 41 SMOKED LESS THAN 1/2 PPD. DRINKS 3-5 BEERS A DAY Past Drug Use History: None Reported - Past Family History Father Family Medical History: Cancer Medications and Allergies Home Medications Medication Instructions Recorded Confirmed Type Aspirin EC [Ecotrin Low Dose] 81 mg PO DAILY 08/18/22 09/16/22 History Atorvastatin [Lipitor] 40 mg PO DAILY 08/18/22 09/16/22 History Ezetimibe [Zetia] 10 mg PO DAILY 08/18/22 09/16/22 History Metoprolol Tartrate [Lopressor] 25 mg PO BID 08/18/22 09/16/22 History Multivit-Min/Folic/Vit K/Lycop 1 each PO DAILY 08/18/22 09/16/22 History [Men's Multivitamin Tablet] Sertraline [Zoloft] 50 mg PO HS 08/18/22 09/16/22 History lisinopriL [Zestril] 10 mg PO DAILY 08/18/22 09/16/22 History Aspirin 81 mg PO BID 30 Days #60 tab 09/17/22 Rx Diclofenac Sodium [Voltaren] 75 mg PO BID 30 Days #60 tab 09/17/22 Rx Docusate [Colace] 100 mg PO BID #60 capsule 09/17/22 Rx HYDROcodone/APAP 5-325MG [[place] 1 - 2 tab PO Q6HR PRN 7 Days #32 09/17/22 Rx 5-325] tab Omeprazole 40 mg PO DAILY 30 Days #30 cap 09/17/22 Rx Allergies Allergy/AdvReac Type Severity Reaction Status Date / Time No Known Allergies Allergy Verified 09/16/22 12:26 Physical Exam Vitals: Vital Signs Temp Pulse Pulse Resp BP BP Pulse Ox 09/17/22 07:14 99.0 F 88 19 114/71 97 09/17/22 02:40 97.8 F 87 16 145/67 95 09/16/22 20:00 16 09/16/22 19:38 97.8 F 71 16 144/69 95 09/16/22 18:00 80 106/68 95 09/16/22 17:45 80 110/69 98 09/16/22 17:30 86 107/67 97 09/16/22 17:15 82 107/63 95 09/16/22 17:00 98.1 F 78 18 114/72 97 09/16/22 16:35 78 16 111/55 98 09/16/22 16:25 77 16 103/51 97 09/16/22 16:10 79 16 115/57 97 09/16/22 15:55 85 16 118/56 100 09/16/22 15:43 97.4 F L 101 H 16 130/60 99 09/16/22 13:10 78 16 113/67 97 09/16/22 12:25 97.4 F L 78 16 138/65 77 L Intake and Output 09/16/22 09/17/22 09/17/22 22:59 06:59 14:59 Intake Total 580 Output Total 460 800 240 Balance 120 -800 -240 Intake: IV 200 Intake, IV Titration 200 Amount Lactated Ringers 1,000 ml 200 @ 100 mls/hr IV .Q10H [facility] Rx#:[id number] Oral 180 Output: Drainage 60 240 Left Hip 60 240 Urine 800 Estimated Blood Loss 400 Other: Weight 129.6 kg - Constitutional General appearance: cooperative, no no acute distress - EENT Eyes: EOMI, PERRLA - Neck Neck: normal ROM, no rigidity - Respiratory Respiratory: bilateral: CTA - Cardiovascular Rhythm: regular Heart sounds: normal: S1, S2 - Gastrointestinal General gastrointestinal: normal bowel sounds, soft - Integumentary Integumentary: normal, normal turgor - Psychiatric Psychiatric: A&O x's 3, appropriate affect, intact judgment & insight Results CBC & Chem 7: 09/17/22 03:45 Labs: Abnormal Lab Results - Last 24 Hours (Table) 09/17/22 Range/Units 03:45 WBC 14.3 H (3.8-10.6) k/uL RBC 3.45 L (4.30-5.90) m/uL Hgb 10.8 L D (13.0-17.5) gm/dL Hct 31.7 L (39.0-53.0) % Neutrophils # 12.1 H (1.3-7.7) k/uL Assessment and Plan (1) Osteoarthritis of left hip Current Visit: Yes Status: Acute Code(s): M16.12 - UNILATERAL PRIMARY OSTEOARTHRITIS, LEFT HIP SNOMED Code(s): 830798774908840 (2) Status post total hip replacement, left Current Visit: Yes Status: Acute Code(s): Z96.642 - PRESENCE OF LEFT ARTIFICIAL HIP JOINT SNOMED Code(s): 396740943142 (3) Hypertension Current Visit: Yes Status: Acute Code(s): I10 - ESSENTIAL (PRIMARY) HYPERTENSION SNOMED Code(s): 14723709 Plan: Home medications have been reconciled. Encourage mobility as tolerated. Encourage diet as tolerated. Appreciate consult. Patient seen and evaluated by nurse practitioner, physician in agreement with plan
[2022-09-17] MEDS ORDERED: lisinopriL 10 MG TAB PO SCH (09:00)
[2022-09-17] MEDS ORDERED: EZETIMIBE 10 MG TAB PO SCH (09:00)
[2022-09-17] MEDS ORDERED: ASPIRIN 81 MG PO SCH (09:00)
[2022-09-17] MEDS ORDERED: MULTIVITAMINS, THERA 1 EACH TAB PO SCH (09:00)
[2022-09-17] MEDS ORDERED: ATORVASTATIN 40 MG TAB PO SCH (09:00)
[2022-09-17 10:52] VITALS: BP 101/58; PULSE 85; RESP 14; TEMP 97.4
--- NOTE | 2022-09-17 12:06 | P.DS ---
Providers Expected date of discharge: 09/17/22 Attending physician: Marco Tovar Consults: 09/16/22 15:55 Consult Physician Routine Consulting Provider: Franklin Bird Consult Reason/Comments: medical management Do you want consulting provider notified?: Yes Primary care physician: Franklin Bird [facility] Course: This is a 56-year-old male who has been followed in our office by Dr. Tovar for continued complaints of left hip pain due to left hip osteoarthritis. Treatment options were discussed, and patient elected to undergo a left total hip arthroplasty. Patient was seen pre-operatively by Dr. Bird, Dr. Gibbons and cleared for surgery. Patient underwent a direct anterior left total hip arthroplasty on 09/16/22. The procedure was performed without complication or sequelae. The patient is doing fairly well postoperatively. Vital signs and labs are stable on postoperative day #1. Patient was examined bedside today with Dr. Tovar. Patient states he is overall doing well and the pain in his left hip is well-controlled. His hemovac drain was pulled this morning. He has been ambulating with a walker with minimal assistance. He has worked with physical therapy this morning. Patient is comfortable being discharged home today. Patient denies new complaints. On examination, the patient is sitting up in the bedside chair in no apparent distress. He is alert and orientated 3. On inspection of the left hip, there is a clean, dry, intact surgical dressing in place. There is no bleeding or drainage the dressing. Hemovac drain removed bedside during exam. Patient has good strength and ROM of the left ankle and toes. Motor and sensory function is intact of the left lower extremity. Femoral nerve function intact. The dorsalis pedis pulse is easily palpable, the left lower extremity is warm and well perfused with brisk capillary refill. Calf is soft and non-tender to palpation. Patient is discharged home with home health in good condition, pending medical clearance. Patient will follow-up with Dr. Tovar in the office in 2 weeks. Please see med rec for accurate list of discharge medication. Plan - Discharge Summary Discharge Rx Participant: Yes New Discharge Prescriptions: New Aspirin 81 mg PO BID 30 Days #60 tab Diclofenac Sodium [Voltaren] 75 mg PO BID 30 Days #60 tab Docusate [Colace] 100 mg PO BID #60 capsule HYDROcodone/APAP 5-325MG [[place] 5-325] 1 - 2 tab PO Q6HR PRN 7 Days #32 tab PRN Reason: Pain Omeprazole 40 mg PO DAILY 30 Days #30 cap No Action Sertraline [Zoloft] 50 mg PO HS Atorvastatin [Lipitor] 40 mg PO DAILY Aspirin EC [Ecotrin Low Dose] 81 mg PO DAILY Metoprolol Tartrate [Lopressor] 25 mg PO BID Ezetimibe [Zetia] 10 mg PO DAILY lisinopriL [Zestril] 10 mg PO DAILY Multivit-Min/Folic/Vit K/Lycop [Men's Multivitamin Tablet] 1 each PO DAILY Discharge Medication List Aspirin EC [Ecotrin Low Dose] 81 mg PO DAILY 08/18/22 [History] Atorvastatin [Lipitor] 40 mg PO DAILY 08/18/22 [History] Ezetimibe [Zetia] 10 mg PO DAILY 08/18/22 [History] Metoprolol Tartrate [Lopressor] 25 mg PO BID 08/18/22 [History] Multivit-Min/Folic/Vit K/Lycop [Men's Multivitamin Tablet] 1 each PO DAILY 08/18/22 [History] Sertraline [Zoloft] 50 mg PO HS 08/18/22 [History] lisinopriL [Zestril] 10 mg PO DAILY 08/18/22 [History] Aspirin 81 mg PO BID 30 Days #60 tab 09/17/22 [Rx] Diclofenac Sodium [Voltaren] 75 mg PO BID 30 Days #60 tab 09/17/22 [Rx] Docusate [Colace] 100 mg PO BID #60 capsule 09/17/22 [Rx] HYDROcodone/APAP 5-325MG [[place] 5-325] 1 - 2 tab PO Q6HR PRN 7 Days #32 tab 09/17/22 [Rx] Omeprazole 40 mg PO DAILY 30 Days #30 cap 09/17/22 [Rx] Follow up Appointment(s)/Referral(s): Marco Tovar MD [Medical Doctor] - 2 Weeks Activity/Diet/Wound Care/Special Instructions: Weight bear to tolerance on operative extremity with a walker. Keep operative dressings in place until follow-up in the office. Call the office if dressing becomes saturated or falls off. May shower over dressing. Take pain medications as prescribed. Take aspirin 81mg BID x 4 weeks for blood clot prevention. Follow-up at [facility] in two weeks. Call the office with any questions or concerns, Discharge Disposition: HOME WITH HOME HEALTH SERVICES
== END 2022-09-17 13:56 | disposition home health service (06) ==
LOC: OR 12:01 → 4SSUR 15:32 → OR 09-17 13:56
PROVIDERS: ATTEND Orthopaedic Surgery
DX: M16.12 Unilateral primary osteoarthritis, left hip (principal); G89.18 Other acute postprocedural pain; I10 Essential (primary) hypertension; E78.5 Hyperlipidemia, unspecified; Z79.899 Other long term (current) drug therapy; Z68.39 Body mass index [BMI] 39.0-39.9, adult
CPT/HCPCS: 27130; 64447 ×2; 97161; 97166; 76942; 86900; 86901; 85025; 86850; 73501; C1776; J2250; J0330; J1100; J2710; J0690; J2405; J3010 ×2; J2795; J1885; J2704; J1170; J2001

== ENCOUNTER 2022-11-13 05:40 | Day surgery (SDC) | payer BC ==
[~2022-11-13 05:40] MED LIST changes: -ACETAMINOPHEN TAB 500 MG TAB PO PRN; -DEXAMETHASONE SOD PHOSPHATE 10 MG/ML 1 ML VIAL IV PRN; -DEXAMETHASONE SOD PHOSPHATE 4 MG/ML 1 ML VIAL IV ONE; -DOCUSATE 100 MG CAP PO PRN; -FAMOTIDINE 20 MG/2 ML VIAL IVP PRN; -HYDROmorphone 0.5 MG/0.5 ML SYRINGE IVP PRN; -KETOROLAC 15 MG/ML 1 ML VIAL IVP PRN; -LIDOCAINE 1% (10MG/ML) FOR IV START INTRADERMA PRN; -ONDANSETRON 4 MG/2 ML VIAL IVP ONE; -ONDANSETRON 4 MG/2 ML VIAL IVP PRN; -TRANEXAMIC ACID IN NACL,ISO-OS 1,000 MG in SALINE 1 100ML.BAG IVPB PRN; -oxyCODONE ER 10 MG TAB.ER.12H PO PRN
[2022-11-13] MEDS ORDERED: DEXAMETHASONE SOD PHOSPHATE 4 MG/ML 1 ML VIAL IV ONE (05:54)
[2022-11-13] MEDS ORDERED: LIDOCAINE 1% (10MG/ML) FOR IV START INTRADERMA PRN (05:54)
[2022-11-13] MEDS ORDERED: ONDANSETRON 4 MG/2 ML VIAL IVP ONE (05:54)
[2022-11-13] MEDS ORDERED: MIDAZOLAM 2 MG/2 ML VIAL IV PRN (05:54)
[2022-11-13] MEDS ORDERED: LACTATED RINGERS 1,000 ML IV SCH (05:54)
[2022-11-13] MEDS ORDERED: DOCUSATE 100 MG CAP PO PRN (06:00)
[2022-11-13] MEDS ORDERED: TRANEXAMIC ACID IN NACL,ISO-OS 1,000 MG in SALINE 1 100ML.BAG IVPB PRN (06:00)
[2022-11-13] MEDS ORDERED: ONDANSETRON 4 MG/2 ML VIAL IVP PRN ×2 (06:00→09:48)
[2022-11-13] MEDS ORDERED: oxyCODONE ER 10 MG TAB.ER.12H PO PRN (06:00)
[2022-11-13] MEDS ORDERED: KETOROLAC 15 MG/ML 1 ML VIAL IVP PRN (06:00)
[2022-11-13] MEDS ORDERED: ACETAMINOPHEN TAB 500 MG TAB PO PRN (06:00)
[2022-11-13] MEDS ORDERED: TRANEXAMIC ACID IN NACL,ISO-OS 1,000 MG in SALINE 1 100ML.BAG IV PRN (06:00)
[2022-11-13] MEDS ORDERED: DEXAMETHASONE SOD PHOSPHATE 10 MG/ML 1 ML VIAL IV PRN (06:00)
[2022-11-13] MEDS ORDERED: FAMOTIDINE 20 MG/2 ML VIAL IVP PRN (06:00)
[2022-11-13] MEDS ORDERED: fentaNYL (PF) 50 MCG/1 ML VIAL IVP ONE (06:46)
[2022-11-13] MEDS ORDERED: MIDAZOLAM 2 MG/2 ML VIAL IVP ONE (06:46)
[2022-11-13] MEDS ORDERED: ROCURONIUM 10 MG/ML (5 ML VIAL) IV ONE (06:55)
[2022-11-13] MEDS ORDERED: MIDAZOLAM 2 MG/2 ML VIAL ONE (06:55)
[2022-11-13] MEDS ORDERED: GLYCOPYRROLATE 0.2 MG/ML 2 ML VIAL ONE (06:55)
[2022-11-13] MEDS ORDERED: fentaNYL (PF) 50 MCG/ML 2 ML AMP ONE (06:55)
[2022-11-13] MEDS ORDERED: ePHEDrine 50 MG/ML 1 ML VIAL ONE (06:55)
[2022-11-13] MEDS ORDERED: SODIUM CHLORIDE 0.9% (PF) 10 ML VIAL ONE (06:55)
[2022-11-13] MEDS ORDERED: NEOSTIGMINE 1 MG/ML 10 ML VIAL ONE (06:55)
[2022-11-13] MEDS ORDERED: KETAMINE 10 MG/ML 20 ML VIAL ONE (06:55)
[2022-11-13] MEDS ORDERED: PHENYLEPHRINE-0.9% NACL SYG 1,000 MCG/10 ML SYRINGE ONE (06:55)
[2022-11-13] MEDS ORDERED: PROPOFOL 10 MG/ML 20 ML VIAL IV ONE (06:55)
[2022-11-13] MEDS ORDERED: ROPIVACAINE 5 MG/ML 30 ML VIAL ONE (06:55)
[2022-11-13] MEDS ORDERED: LIDOCAINE 2% INJ 20 MG/ML (2 ML VIAL) ONE (06:55)
[2022-11-13] MEDS ORDERED: DEXAMETHASONE SOD PHOSPHATE 4 MG/ML 1 ML VIAL ONE (06:55)
[2022-11-13] MEDS ORDERED: SUCCINYLCHOLINE CHLORIDE 200 MG/10 ML VIAL IV ONE (06:55)
[2022-11-13] MEDS ORDERED: fentaNYL (PF) 50 MCG/ML 2 ML AMP IVP PRN (07:00)
--- NOTE | 2022-11-13 07:03 | P.ANPRN ---
Procedure Note - Anesthesia - Nerve Block Performed Right Thomas Single Time Out Performed: Yes Date of Procedure: 11/13/22 Procedure Start Time: 06:45 Procedure Stop Time: 06:52 Location of Patient: PreOp Indication: Acute Post-Operative Pain, Requested by Surgeon Sedation Type: Sedate with meaningful contact maintained Preparation: Sterile Prep Position: Supine Needle Types: Pajunk Needle Gauge: 21 Ultrasound used to visualize needle placement: Yes Ultrasound used to observe medication spread: Yes Injectate: 0.5% Ropivacaine (see comment for volume) (15 ml + 15 ml NS +4mg Dexamethasone) Blood Aspirated: No Pain Paresthesia on Injection Noted: No Resistance on Injection: Normal Image Stored and Saved: Yes Events: Uneventful and Well Tolerated
[2022-11-13] MEDS ORDERED: LACTATED RINGERS 1,000 ML IV ONE ×3 (07:41→10:38)
[2022-11-13] MEDS: ROPIVACAINE/EPI/CLONIDINE/KET 50 ML SYRINGE MISCELLANE PRN ×2 (07:47→08:58)
--- NOTE | 2022-11-13 09:42 | XR ---
EXAMINATION TYPE: XR Hip Limited RT DATE OF EXAM: 11/13/2022 COMPARISON: NONE HISTORY: Postop TECHNIQUE: 9 limited resolution intraoperative view submitted. FINDINGS: There is postsurgical change in near anatomic alignment. There is soft tissue edema and emphysema. IMPRESSION: 1. Postoperative change. Appears in near-anatomic alignment.
--- NOTE | 2022-11-13 09:43 | FL ---
EXAMINATION TYPE: FL guidance operating room DATE OF EXAM: 11/13/2022 HISTORY: Fluoroscopy time 53sec. FL time, and 6.8958 DAP. of fluoroscopy provided. IMPRESSION: 1. Fluoroscopy time.
[2022-11-13] MEDS ORDERED: HYDROmorphone 0.5 MG/0.5 ML SYRINGE IVP PRN ×2 (09:48)
[2022-11-13] MEDS ORDERED: HYDROcodone/APAP 5-325MG 1 EACH TAB PO PRN (09:48)
[2022-11-13] MEDS ORDERED: HYDROmorphone 1 MG/ML 1 ML SYRINGE IVP PRN (09:48)
[2022-11-13] MEDS ORDERED: NALOXONE 0.4 MG/ML 1 ML VIAL IV PRN (09:48)
[2022-11-13] MEDS ORDERED: hydrOXYzine pamoate 25 MG CAP PO PRN (09:48)
--- NOTE | 2022-11-13 09:56 | P.OP ---
Date of Procedure: 11/13/22 Preoperative Diagnosis: 1. Right hip arthritis 2. BMI 40 Postoperative Diagnosis: Same Procedure(s) Performed: Right direct anterior total hip arthroplasty Implants: 1. Olamide Trident II Acetabular Cup, Size #56 2. [place] Insignia Size # 7 Femoral Stem, StandardOffset 3. Biolox delta femoral head, 36 mm, -5 neck Anesthesia: GETA, regional Surgeon: Marco Tovar Claim Clinician #1: Linda Guerrero Estimated Blood Loss (ml): 200 IV fluids (ml): 1,100 Pathology: none sent Condition: stable Disposition: PACU Indications for Procedure: I had a long discussion with the patient in the office on the potential risks and complications of an elective total hip replacement through a direct anterior approach. Risks discussed include, but are certainly not limited to, risks from anesthesia, superficial infection requiring local wound care or antibiotics, deep manju-prosthetic joint infection and the treatment required to eradicate infection, intraoperative fracture, postoperative periprosthetic fracture, damage to local blood vessels or nerves particularly the lateral femoral cutaneous nerve, delayed wound healing requiring local wound care or possibly surgical debridement, hip dislocation, leg length discrepancy, soft tissue irritation around the total hip implant such as iliopsoas tendinitis or trochanteric bursitis, wear and osteolysis from the implants, squeaking or audible noises, groin pain, thigh pain, heterotopic ossification, stiffness, aseptic loosening of the implants, dissatisfaction with surgical outcome, need for revision surgery, DVT, PE, swelling of the operative extremity, acute coronary event, stroke, failure to thrive, and possibly loss of life or limb. The patient understands that while these are the most common complications after an elective hip replacement there are certainly other less common complications possible. They were given ample time to ask questions regarding the potential complications of a hip replacement. Following our discussion the patient provided their verbal and written consent to go forward with an elective total hip replacement. Description of Procedure: The patient was identified in the preoperative holding area and the correct hip was marked with my initials. I reviewed the procedure and consent with the patient. All of their questions were answered. The patient was then brought back into the operating room by anesthesia. While on the [facility] anesthesia was administered by the anesthesia team. Preoperative antibiotics and tranexamic acid were also given. After the patient was under anesthesia I examined their ankles to determine their preoperative leg length discrepancy. The skin over the anterior aspect of the hip was shaved to remove hair over the site of planned incision. Both feet and ankles were padded with webril and boots for the Hiko were applied. The patient was then carefully transferred onto the Hiko table. A perineal post was immediately placed. The arms were placed on arm holders and were well-padded. Both boots were secured to the spars on the Hiko table. The patient was positioned so that the pelvis was centered over the post. Nonsterile drapes were applied. A timeout was performed identifying the correct patient, operative extremity, and procedure. At this point fluoroscopy was brought in to take preoperative images of the pelvis and operative hip. Using the standing AP pelvis from the office as a template, a comparable image was obtained with fluoroscopy. A metallic bar was used to create a bi-ischial line for use as a reference to leg length adjustments during the procedure. Global offset was also measured on both the operative and nonoperative leg. Fluoroscopy was then brought out and a pre-scrub using a chlorhexidine scrub brush was performed. The operative limb was then prepped and draped in the standard sterile fashion. An anterior longitudinal incision was made lateral and distal to the ASIS. The skin and subcutaneous tissues were incised sharply. The underlying tensor fascia was identified and incised in its midportion. The fascia was dissected free from the underlying muscle and the muscle belly was retracted. A blunt tipped cobra retractor was placed over the superior neck under the muscle fibers of the gluteus minimus. The deep enveloping fascia of the tensor was incised. The anterior leash of vessels were then identified and cauterized. The fascia between the rectus and the capsule was then incised and the pre-capsular fat was excised. A second Cobra was placed inferior to the neck. The interval between the rectus and iliocapsularis and the hip capsule was developed and a retractor was placed carefully over the anterior rim of the acetabulum. A T-shaped anterior capsulotomy was performed. The superior capsular leaflet was left in place in the inferior capsular flap was excised. The Cobra retractors were placed intracapsularly. We then made a femoral neck osteotomy according to preoperative and intraoperative templating and confirmed the level of the osteotomy using fluoroscopic imaging. The femoral head was removed, passed off to the back table, and sized. The superior capsular flap was excised. Retractors were placed circumferentially exposing the acetabulum. We then circumferentially debrided the acetabulum free of labrum and osteophytes. The pulvinar was removed to fully visualize the cotyloid fossa. We then sequentially reamed to achieve peripheral fit and excellent bleeding subchondral bone. The socket was thoroughly irrigated. The acetabular component was impa cted into the appropriate position using fluoroscopy to guide version, inclination, and depth of insertion taking care to have a comparable image of the AP pelvis to the standing image taken in the office. An excellent press-fit was achieved and final position was confirmed using fluoroscopy. The press fit was augmented with bony cancellus dome screws. The liner was then impacted into the socket. Attention was then turned to the femur. The remnant dorsal lateral capsule was excised. The short external rotators were visible and protected. A bone hook was used to confirm appropriate translation of the trochanter away from the acetabulum. The leg was then extended and adducted and the bone hook was used to elevate the femur for broaching. A box osteotome and blunt tipped canal sound was then utilized to gain access to the femoral canal. We then sequentially broached the femur in appropriate anteversion until excellent torsional stability was achieved. The neck cut was brought flush to the trial broach with a calcar planar. A trial neck and head were then placed onto the broach and the hip was atraumatically reduced under direct visualization. External rotation to 90 was performed to assess stability. Fluoroscopy was brought in. An AP and lateral fluoroscopic image of the proximal femur was obtained to assess position and fill of the trial broach. An AP of the pelvis was then obtained and matched to the preoperative image taken. A bi-ischial bar was then placed and measurements were taken to assess changes in length and offset. The hip was then carefully dislocated, the proximal femur was exposed, and the trial implants were removed. The wound and proximal femur was thoroughly irrigated using sterile saline and pulsatile lavage. The final femoral implant was dispensed and gently tapped into place generating an excellent press-fit. The trunnion was cleansed and the final head was tapped into place to engage the Joseph taper. The acetabulum was irrigated and visualized to be free of debris. The hip was carefully reduced. Stability was checked clinically with external rotation to 90 and there was no evidence of instability. Final fluoroscopic images were taken. The wound was then thoroughly irrigated and soaked with a dilute Betadine rinse for 3 minutes. 3 L of sterile saline was irrigated through the wound using pulsatile lavage. Local anesthetic cocktail was injected into the soft tissues around the surgical field. A deep drain was placed. The wound was then closed in layers. A sterile dressing was placed over the surgical incision and drain site. The drapes were taken down and the patient was carefully transferred off of the Hiko table. Following removal of the boots the leg lengths felt acceptable. The patient was then taken to recovery room having tolerated the procedure well. Linda Guerrero PA-C was required as a skilled regulatory affairs assistant for patient positioning, surgical exposure, retraction, placement of implants, and closure of the surgical wound. PLAN: The patient can weight-bear as tolerated on the operative extremity. 2 doses of postoperative antibiotics. DVT prophylaxis with aspirin 81 mg twice a day based on preoperative risk stratification. Physical therapy for gait training. Discontinue drain postoperative day #1 if output is less than 100 mL per shift.
[2022-11-13] MEDS: HYDROmorphone 0.5 MG/0.5 ML SYRINGE IVP PRN ×2 (11:18→11:26)
[2022-11-13] MEDS: ceFAZolin 3 GM in SODIUM CHLORIDE 0.9% 100 ML IVPB SCH ×2 (17:27→22:33)
[2022-11-13] MEDS: LACTATED RINGERS 1,000 ML IV SCH ×2 (17:27→20:45)
[2022-11-13] MEDS: ASPIRIN 81 MG PO SCH (20:21)
[2022-11-13] MEDS: HYDROcodone/APAP 5-325MG 1 EACH TAB PO PRN (20:22)
[2022-11-13] MEDS ORDERED: SENNOSIDES-DOCUSATE SODIUM 1 EACH TAB PO SCH (21:00)
[2022-11-14] MEDS: HYDROcodone/APAP 5-325MG 1 EACH TAB PO PRN ×2 (05:39→12:49)
[2022-11-14] MEDS: LACTATED RINGERS 1,000 ML IV SCH (05:41)
[2022-11-14 08:06] VITALS: BP 124/65; PULSE 89; RESP 16; TEMP 97
[2022-11-14] MEDS: ASPIRIN 81 MG PO SCH (08:21)
--- NOTE | 2022-11-14 11:04 | P.DS ---
Providers Date of admission: 11/13/2022 Expected date of discharge: 11/14/22 Attending physician: Marco Tovar Consults: 11/13/22 09:48 Consult Physician Routine Consulting Provider: Franklin Bird Consult Reason/Comments: medical management Do you want consulting provider notified?: Yes Primary care physician: Franklin Bird - Discharge Diagnosis(es) (1) Primary localized osteoarthritis of right hip Current Visit: Yes Status: Acute (2) Status post total replacement of right hip Current Visit: Yes Status: Acute Hospital Course: This is a 57-year-old male with known history of degenerative arthritis of the right hip. The patient presents for evaluation. After discussion and consideration patient elects to proceed with total hip arthroplasty with direct anterior approach. The patient is seen preoperatively by primary care physician and cleared for surgery. Patient is admitted to [facility] on 11/13/2022 for total hip arthroplasty with direct anterior approach. The procedure is performed without complication or sequelae. The patient is doing well postoperatively. Labs and vital signs are stable on day of discharge. On day of discharge patient's hip dressing is clean, dry and intact There is minimal erythema. There is no drainage noted at this time. Hemovac drain is pulled this morning. There is minimal soft tissue swelling to the hip and thigh. Patient has full foot and ankle motion without difficulty or pain. Neurovascular status to the lower extremity is intact. Patient is discharged to home in good condition. Please see med rec for accurate list of home medications. Patient Condition at Discharge: Good Plan - Discharge Summary Discharge Rx Participant: Yes New Discharge Prescriptions: New Docusate [Colace] 100 mg PO BID #60 capsule Omeprazole 40 mg PO DAILY 30 Days #30 cap Diclofenac Sodium [Voltaren] 75 mg PO BID 30 Days #60 tab Aspirin 81 mg PO BID 30 Days #60 tab HYDROcodone/APAP 5-325MG [[place] 5-325] 1 - 2 tab PO Q6HR PRN 7 Days #32 tab PRN Reason: Pain No Action Sertraline [Zoloft] 50 mg PO HS Atorvastatin [Lipitor] 40 mg PO DAILY Aspirin EC [Ecotrin Low Dose] 81 mg PO DAILY Metoprolol Tartrate [Lopressor] 25 mg PO BID Ezetimibe [Zetia] 10 mg PO DAILY lisinopriL [Zestril] 10 mg PO DAILY Multivit-Min/Folic/Vit K/Lycop [Men's Multivitamin Tablet] 1 each PO DAILY Discharge Medication List Aspirin EC [Ecotrin Low Dose] 81 mg PO DAILY 08/18/22 [History] Atorvastatin [Lipitor] 40 mg PO DAILY 08/18/22 [History] Ezetimibe [Zetia] 10 mg PO DAILY 08/18/22 [History] Metoprolol Tartrate [Lopressor] 25 mg PO BID 08/18/22 [History] Multivit-Min/Folic/Vit K/Lycop [Men's Multivitamin Tablet] 1 each PO DAILY 08/18/22 [History] Sertraline [Zoloft] 50 mg PO HS 08/18/22 [History] lisinopriL [Zestril] 10 mg PO DAILY 08/18/22 [History] Aspirin 81 mg PO BID 30 Days #60 tab 11/13/22 [Rx] Diclofenac Sodium [Voltaren] 75 mg PO BID 30 Days #60 tab 11/13/22 [Rx] Docusate [Colace] 100 mg PO BID #60 capsule 11/13/22 [Rx] HYDROcodone/APAP 5-325MG [[place] 5-325] 1 - 2 tab PO Q6HR PRN 7 Days #32 tab 11/13/22 [Rx] Omeprazole 40 mg PO DAILY 30 Days #30 cap 11/13/22 [Rx] Follow up Appointment(s)/Referral(s): Macro Tovar MD [Medical Doctor] - 2 Weeks Activity/Diet/Wound Care/Special Instructions: Weight bear to tolerance on operative extremity with a walker. Keep operative dressing in place until follow-up appointment in the office. Call the office if dressing becomes saturated or falls off. May shower over dressing. Take pain medications as prescribed. Take aspirin 81 twice a day for blood clot prevention. Follow-up in the office in two weeks at [facility]. Call the office with any questions or concerns, Discharge Disposition: HOME WITH HOME HEALTH SERVICES
[2022-11-14 12:18] LABS: Basophils # (A) 0.01 X 10*3/uL (0.00-0.10); Basophils % (A) 0.1 %; Eosinophils # (A) 0 X 10*3/uL (0.04-0.35); Eosinophils % (A) 0 %; HCT 31.1 % (39.6-50.0); HGB 10.1 g/dL (13.0-17.0); Immature Grans, Automated 0.8 %; Lymphocytes # (A) 1.05 X 10*3/uL (0.90-5.00); Lymphocytes % (A) 7.3 %; MCH 30.3 pg (27.0-32.0); MCHC 32.5 g/dL (32.0-37.0); MCV 93.4 fL (80.0-97.0); Mean Platelet Volume 10.5 fL (9.5-12.2); Monocytes # (A) 1.44 X 10*3/uL (0.20-1.00); NRBC Per 100 WBC 0 /100 WBCS (0.0-0.0); Neutrophils # (A) 11.86 X 10*3/uL (1.80-7.70); Neutrophils % (A) 81.8 %; Platelet Count 207 X 10*3/uL (140-440); RBC 3.33 X 10*6/uL (4.40-5.60); RDW 12.3 % (11.5-14.5); WBC 14.47 X 10*3/uL (4.50-10.00)
--- NOTE | 2022-11-15 11:46 | P.CONS ---
History of Present Illness - Reason for Consult Consult date: 11/14/22 Medical management - Chief Complaint Severe right hip arthritis - History of Present Illness 57-year-old male patient admitted to the hospital with severe right hip arthritis with plans for elective right total hip arthroplasty; patient was seen in orthopedic office for treatment of severe osteoarthritis right hip; patient failed all conservative treatment and was recommended elective total hip replacement; Patient is admitted to [facility] on 11/13/2022 for total hip arthroplasty with direct anterior approach. The procedure is performed without complication or sequelae. The patient is doing well postoperatively. Labs and vital signs are stable Review of Systems REVIEW OF SYSTEMS: CONSTITUTIONAL: No fever, no malaise, no fatigue. HEENT: No recent visual problems or hearing problems. Denied any sore throat. CARDIOVASCULAR: No chest pain, orthopnea, PND, no palpitations, no syncope. PULMONARY: No shortness of breath, no cough, no hemoptysis. GASTROINTESTINAL: No diarrhea, no nausea, no vomiting, no abdominal pain. NEUROLOGICAL: No headaches, no weakness, no numbness. HEMATOLOGICAL: Denies any bleeding or petechiae. GENITOURINARY: Denies any burning micturition, frequency, or urgency. MUSCULOSKELETAL/RHEUMATOLOGICAL: Denies any joint pain, swelling, or any muscle pain. ENDOCRINE: Denies any polyuria or polydipsia. The rest of the 14-point review of systems is negative. Past Medical History Past Medical History: Hyperlipidemia, Hypertension, Osteoarthritis (OA) Additional Past Medical History / Comment(s): RECENT ABN STRESS TEST History of Any Multi-Drug Resistant Organisms: None Reported Past Surgical History: Heart Catheterization, Joint Replacement, Orthopedic Surgery, Tonsillectomy Additional Past Surgical History / Comment(s): LT ROTATOR CUFF REPAIR, COLONOSCOPY, left hip replaced in 2022 Past Anesthesia/Blood Transfusion Reactions: No Reported Reaction Past Psychological History: Depression Smoking Status: Former smoker Past Alcohol Use History: Daily, Heavy Additional Past Alcohol Use History / Comment(s): QUIT SMOKING 20 + YEARS AGO, 3-5 beers daily Past Drug Use History: None Reported - Past Family History Father Family Medical History: Cancer Medications and Allergies Home Medications Medication Instructions Recorded Confirmed Type Aspirin EC [Ecotrin Low Dose] 81 mg PO DAILY 08/18/22 11/11/22 History Atorvastatin [Lipitor] 40 mg PO DAILY 08/18/22 11/11/22 History Ezetimibe [Zetia] 10 mg PO DAILY 08/18/22 11/11/22 History Metoprolol Tartrate [Lopressor] 25 mg PO BID 08/18/22 11/11/22 History Multivit-Min/Folic/Vit K/Lycop 1 each PO DAILY 08/18/22 11/11/22 History [Men's Multivitamin Tablet] Sertraline [Zoloft] 50 mg PO HS 08/18/22 11/11/22 History lisinopriL [Zestril] 10 mg PO DAILY 08/18/22 11/11/22 History Aspirin 81 mg PO BID 30 Days #60 tab 11/13/22 Rx Diclofenac Sodium [Voltaren] 75 mg PO BID 30 Days #60 tab 11/13/22 Rx Docusate [Colace] 100 mg PO BID #60 capsule 11/13/22 Rx HYDROcodone/APAP 5-325MG [[place] 1 - 2 tab PO Q6HR PRN 7 Days #32 11/13/22 Rx 5-325] tab Omeprazole 40 mg PO DAILY 30 Days #30 cap 11/13/22 Rx Aspirin 81 mg PO BID tab 11/14/22 Rx Allergies Allergy/AdvReac Type Severity Reaction Status Date / Time No Known Allergies Allergy Verified 11/13/22 05:58 Physical Exam Vitals: Vital Signs Temp Pulse Resp BP BP Pulse Ox 11/14/22 07:12 97.0 F L 89 16 124/65 97 11/14/22 01:14 98.5 F 96 18 114/50 97 11/13/22 21:54 98.1 F 92 16 132/68 11/13/22 14:00 95 124/67 94 L 11/13/22 13:45 86 95/59 94 L 11/13/22 13:30 87 88/56 92 L 11/13/22 13:15 92 93/59 96 11/13/22 12:30 87 16 104/55 96 11/13/22 12:02 81 12 101/52 96 11/13/22 11:46 81 19 98/49 11/13/22 11:31 79 13 99/47 94 L 11/13/22 11:00 78 18 100/54 96 11/13/22 10:45 84 17 99/50 95 11/13/22 10:29 91 18 94/47 95 11/13/22 10:14 81 18 102/51 95 11/13/22 09:59 82 17 114/58 95 11/13/22 09:44 98.1 F 94 18 126/58 98 Intake and Output 11/13/22 11/14/22 11/14/22 22:59 06:59 14:59 Intake Total 720 Output Total 400 1800 Balance -400 -1080 Intake: Oral 720 Output: Urine 400 1800 PHYSICAL EXAMINATION: GENERAL: The patient is alert and oriented x3, not in any acute distress. Well developed, well nourished. HEENT: Pupils are round and equally reacting to light. EOMI. No scleral icterus. No conjunctival pallor. Normocephalic, atraumatic. No pharyngeal erythema. No thyromegaly. CARDIOVASCULAR: S1 and S2 present. No murmurs, rubs, or gallops. PULMONARY: Chest is clear to auscultation, no wheezing or crackles. ABDOMEN: Soft, nontender, nondistended, normoactive bowel sounds. No palpable organomegaly. MUSCULOSKELETAL: No joint swelling or deformity. EXTREMITIES: No cyanosis, clubbing, or pedal edema. NEUROLOGICAL: Gross neurological examination did not reveal any focal deficits. SKIN: No rashes. Results CBC & Chem 7: 11/14/22 05:24 Assessment and Plan Assessment: 1. Severe osteoarthritis right hip; status post total right hip replacement; POD #1 - Patient remains hemodynamically stable; incision site and dressing remains clean and dry with no drainage noted 2. Hypertension; lisinopril 10 mg daily; metoprolol 25 mg twice a day 3. Hyperlipidemia; Lipitor 40 mg by mouth daily at bedtime with seborrhea 10 mg daily 4. Gastroesophageal reflux disease; Protonix 40 mg daily 5. Depression; Zoloft 50 malignancy daily at bedtime
== END 2022-11-14 15:15 | disposition home health service (06) ==
LOC: OR 05:40 → 4SSUR 09:49 → OR 11-14 15:15
PROVIDERS: ATTEND Orthopaedic Surgery
DX: M16.11 Unilateral primary osteoarthritis, right hip (principal); E66.01 Morbid (severe) obesity due to excess calories; Z68.41 Body mass index [BMI] 40.0-44.9, adult; I10 Essential (primary) hypertension; E78.5 Hyperlipidemia, unspecified; L98.9 Disorder of the skin and subcutaneous tissue, unspecified; Z98.890 Other specified postprocedural states; Z79.899 Other long term (current) drug therapy; F10.20 Alcohol dependence, uncomplicated
CPT/HCPCS: 27130; 97161; 64447; 76942; 86900; 86901; 85025; 86850; 73501; C1776; J2250; J1100; J0690; J2405; J1885; J1170; J3010

== ENCOUNTER 2025-02-08 11:37 | Day surgery (SDC) | payer BC ==
[2025-02-08] MEDS: LACTATED RINGERS 1,000 ML IV ONE (11:56)
[2025-02-08] MEDS: LACTATED RINGERS 1,000 ML IV SCH (12:05)
[2025-02-08 12:07] VITALS: TEMP 98
[2025-02-08] MEDS ORDERED: PROPOFOL 10 MG/ML 20 ML VIAL IV ONE (13:48)
--- NOTE | 2025-02-08 13:53 | P.GSHP ---
History of Present Illness H&P Date: 02/08/25 Chief Complaint: Colon cancer screening 59-year-old male here for colonoscopy. Last colonoscopy 7 to 8 years ago. Patient thinks he had colon polyps at the time. No bowel complaints. No family history of colon cancer. Past Medical History Past Medical History: Hyperlipidemia, Hypertension, Osteoarthritis (OA) Additional Past Medical History / Comment(s): RECENT ABN STRESS TEST History of Any Multi-Drug Resistant Organisms: None Reported Past Surgical History: Heart Catheterization, Joint Replacement, Orthopedic Surgery, Tonsillectomy Additional Past Surgical History / Comment(s): LT ROTATOR CUFF REPAIR, COLONOSCOPY, [place] hip replaced Past Anesthesia/Blood Transfusion Reactions: No Reported Reaction Smoking Status: Former smoker - Past Family History Father Family Medical History: Cancer Medications and Allergies Home Medications Medication Instructions Recorded Confirmed Type Aspirin EC [Ecotrin Low Dose] 81 mg PO DAILY 08/18/22 02/06/25 History Atorvastatin [Lipitor] 40 mg PO DAILY 08/18/22 02/06/25 History Ezetimibe [Zetia] 10 mg PO DAILY 08/18/22 02/06/25 History Metoprolol Tartrate [Lopressor] 25 mg PO BID 08/18/22 02/06/25 History Multivit-Min/Folic/Vit K/Lycop 1 each PO DAILY 08/18/22 02/06/25 History [Men's Multivitamin Tablet] Sertraline [Zoloft] 100 mg PO HS 08/18/22 02/06/25 History lisinopriL [Zestril] 10 mg PO DAILY 08/18/22 02/06/25 History Allergies Allergy/AdvReac Type Severity Reaction Status Date / Time No Known Allergies Allergy Verified 02/06/25 15:50 Surgical - Exam Vital Signs Temp Pulse Resp BP Pulse Ox 98 F 78 16 133/67 98 02/08/25 12:07 02/08/25 12:07 02/08/25 12:07 02/08/25 12:07 02/08/25 12:07 Physical exam: General: Well-developed, well-nourished HEENT: Normocephalic, sclerae nonicteric Abdomen: Nontender, nondistended Extremities: No edema Neuro: Alert and oriented Assessment and Plan (1) Colon cancer screening Narrative/Plan: Will proceed with colonoscopy at this time. Current Visit: Yes Status: Acute Code(s): Z12.11 - ENCOUNTER FOR SCREENING FOR MALIGNANT NEOPLASM OF COLON SNOMED Code(s): 627742290
--- NOTE | 2025-02-08 14:08 | P.PCN ---
Date of Procedure: 02/08/25 Procedure(s) Performed: PREOPERATIVE DIAGNOSIS: Colon cancer screening with questionable history of polyps in the past POSTOPERATIVE DIAGNOSIS: 2 small ascending colon polyps, small rectal polyp, diverticulosis PROCEDURE: Colonoscopy with snare polypectomy ANESTHESIA: MAC SURGEON: Chirag Burrell M.D. SPECIMENS: Polyps ENDOSCOPIC PROCEDURE: The patient was placed on the endoscopy table in the left decubitus position. The Olympus colonoscope was inserted into the anus and passed under direct visualization to the base of the cecum. The appendiceal orifice was visualized. From that point the scope was slowly withdrawn inspecting all surfaces carefully. There were no neoplastic inflammatory or polypoid lesions throughout the cecum. In the ascending colon 2 small polyps were seen and removed using the snare with cautery technique. Transverse descending and sigmoid colon appeared normal. 1 small polyp in the rectum was removed. Patient had mild scattered diverticulosis. Digital rectal examination was normal. The patient was taken to the recovery room in stable condition per anesthesia guidelines. RECOMMENDATIONS: Await biopsy results. Will contact patient with timing of next colonoscopy.
[2025-02-08 14:32] VITALS: BP 119/73; PULSE 74; RESP 16
== END 2025-02-08 14:41 | disposition home or self-care (01) ==
LOC: ORWHC2ENDO 11:37
PROVIDERS: ATTEND Surgery
DX: Z12.11 Encounter for screening for malignant neoplasm of colon (principal); K62.1 Rectal polyp; K63.5 Polyp of colon; K57.30 Diverticulosis of large intestine without perforation or abscess without bleeding; E78.5 Hyperlipidemia, unspecified; I10 Essential (primary) hypertension; Z87.891 Personal history of nicotine dependence
CPT/HCPCS: 45385; J2704; 88305